=== PATIENT | male | born 1960 | race Caucasian/White ===

== ENCOUNTER 2022-08-03 02:26 | Inpatient (IN) ==
[2022-08-03] MEDS ORDERED: Ondansetron 4 mg VIAL 2 MG/ML 2 ml VIAL IV PRN (02:42)
[2022-08-03] MEDS ORDERED: Insulin GLARGINE 100 un/ml 10 ml VIAL SUBCUT ONE (03:03)
[2022-08-03 03:25] LABS: ABS Basophils 0.1 10^3/ul (0-0.2); ABS Eosinophils 0.1 10^3/ul (0-0.6); ABS Monocytes 1.4 10^3/ul (0-0.8); ABS Neutrophils 13.2 10^3/ul (1.5-7.7); Eosinophil % 0.9 %; Hematocrit 35 % (42-52); Hemoglobin 11.6 g/dL (14.0-18.0); Lymphocyte % 12.1 %; Mean Corpuscular HGB Conc 33 g/dL (31-36); Mean Corpuscular Hemoglobin 30 pg (27-31); Mean Corpuscular Volume 91 fL (80-94); Platelet Count 233 10^3/uL (150-450); Red Blood Count 3.87 10^6 /uL (4.18-5.48); Red Cell Distribution Width 14 % (10-15); White Blood Count 16.9 10^3/uL (3.5-10.8)
[2022-08-03] MEDS ORDERED: Vancomycin 1,750 MG in NS 0.9% 500 ml BAG 500 ML IVPB ONE (04:00)
[2022-08-03] MEDS ORDERED: Vancomycin per Pharmacy 1 EA NOTE FOLLOW UP SCH (04:00)
[2022-08-03] MEDS ORDERED: Zosyn per Pharmacy NOTE FOLLOW UP SCH (04:00)
[2022-08-03] MEDS ORDERED: Zosyn 3.375 GM IV - ED ONCE IV ONE (04:00)
[2022-08-03 04:22] LABS: Potassium 4.4 mmol/L (3.5-5.0); eGFR CKD-EPI 53.3 (>60)
[2022-08-03] MEDS ORDERED: ZOSYN 3.375 GM Q8H per EXTENDED INFUSION IV SCH (04:30)
[2022-08-03] MEDS ORDERED: Vancomycin Random Level NOTE FOLLOW UP ONE (06:00)
[2022-08-03] MEDS ORDERED: Vancomycin 750 MG in NS 0.9% 250 ML IVPB SCH (08:00)
[2022-08-03 08:15] LABS: C Reactive Protein 117.78 mg/L (<8.01)
[2022-08-03] MEDS: DULoxetine DR 60 mg CAP PO SCH (08:36)
[2022-08-03] MEDS: NF: Potassium Citrate 10 meq TAB (NF) PO SCH ×2 (08:46→22:49)
[2022-08-03] MEDS ORDERED: TAPENTADOL 200 MG PO SCH (09:00)
[2022-08-03] MEDS ORDERED: Gadoteridol (CONTRAST) 279.3 MG/ML 10 ML IV ONE (13:54)
[2022-08-03] MEDS: Cefepime 1 GM in Dextrose 1 GM/50 ML BAG IV SCH (17:23)
[2022-08-03] MEDS: Vancomycin 750 MG in NS 0.9% 250 ML IVPB SCH (20:05)
[2022-08-03] MEDS: Insulin GLARGINE 100 un/ml 10 ml VIAL SUBCUT SCH (22:59)
[2022-08-04] MEDS ORDERED: Vancomycin Trough Check NOTE FOLLOW UP ONE (07:30)
[2022-08-04 07:36] LABS: ABS Eosinophils 0.3 10^3/ul (0-0.6); ABS Lymphocytes 1.6 10^3/ul (1.0-4.8); ABS Neutrophils 13.5 10^3/ul (1.5-7.7); Eosinophil % 1.6 %; Hematocrit 42 % (42-52); Hemoglobin 13.7 g/dL (14.0-18.0); Lymphocyte % 9.9 %; Mean Corpuscular HGB Conc 33 g/dL (31-36); Mean Corpuscular Hemoglobin 30 pg (27-31); Mean Corpuscular Volume 90 fL (80-94); Mean Platelet Volume 7.4 fL (7.4-10.4); Platelet Count 325 10^3/uL (150-450); Red Blood Count 4.64 10^6 /uL (4.18-5.48); Red Cell Distribution Width 14 % (10-15); White Blood Count 16.5 10^3/uL (3.5-10.8)
[2022-08-04 08:07] LABS: Calcium 9.6 mg/dL (8.6-10.3); Magnesium 1.9 mg/dL (1.9-2.7)
[2022-08-04] MEDS: Cefepime 1 GM in Dextrose 1 GM/50 ML BAG IV SCH ×2 (08:29→17:34)
[2022-08-04 08:40] LABS: C Reactive Protein 108.99 mg/L (<8.01)
[2022-08-04] MEDS: Vancomycin 1000 MG in NS 0.9% 250 ML IVPB SCH ×2 (08:59→20:47)
[2022-08-04] MEDS: Vancomycin 750 MG in NS 0.9% 250 ML IVPB SCH (09:00)
[2022-08-04] MEDS: DULoxetine DR 60 mg CAP PO SCH (09:03)
[2022-08-04] MEDS: NF: Potassium Citrate 10 meq TAB (NF) PO SCH (09:09)
[2022-08-04] MEDS ORDERED: Sulfur Hexaflouride MICROSPHR 25 MG VIAL ONE (10:29)
[2022-08-04] MEDS ORDERED: NS 0.9% 1000 ml BAG 1,000 ML IV SCH (12:45)
[2022-08-04] MEDS: Enoxaparin 40 MG/0.4 ML SYR SUBCUT SCH (14:11)
[2022-08-04] MEDS: Tapentadol 50 mg TAB (NF) PO SCH ×2 (15:17→20:40)
[2022-08-04] MEDS: Insulin GLARGINE 100 un/ml 10 ml VIAL SUBCUT SCH (20:45)
[2022-08-04] MEDS: POTASSIUM CITRATE 10 MEQ PO SCH (21:59)
[2022-08-05] MEDS: Tapentadol 50 mg TAB (NF) PO SCH ×4 (02:39→21:47)
[2022-08-05 05:33] LABS: ABS Basophils 0.1 10^3/ul (0-0.2); ABS Eosinophils 0.6 10^3/ul (0-0.6); ABS Lymphocytes 1.9 10^3/ul (1.0-4.8); ABS Monocytes 1.1 10^3/ul (0-0.8); ABS Neutrophils 8.8 10^3/ul (1.5-7.7); Eosinophil % 4.9 %; Hematocrit 38 % (42-52); Hemoglobin 12.4 g/dL (14.0-18.0); Lymphocyte % 15.6 %; Mean Corpuscular HGB Conc 32 g/dL (31-36); Mean Corpuscular Hemoglobin 29 pg (27-31); Mean Corpuscular Volume 90 fL (80-94); Mean Platelet Volume 7.5 fL (7.4-10.4); Platelet Count 302 10^3/uL (150-450); Red Blood Count 4.23 10^6 /uL (4.18-5.48); Red Cell Distribution Width 15 % (10-15); White Blood Count 12.5 10^3/uL (3.5-10.8)
[2022-08-05] MEDS: Cefepime 1 GM in Dextrose 1 GM/50 ML BAG IV SCH (05:38)
[2022-08-05 06:11] LABS: Albumin 3.7 g/dL (3.2-5.2); Calcium 9.2 mg/dL (8.6-10.3); Magnesium 2.1 mg/dL (1.9-2.7); Total Bilirubin 0.4 mg/dL (0.2-1.0)
[2022-08-05 06:17] LABS: Albumin/Globulin Ratio 1.2 (1-3); Total Protein 6.7 g/dL (6.4-8.9)
[2022-08-05] MEDS ORDERED: fentaNYL 100 mcg/2 ml 50 MCG/ML VIAL ONE (08:01)
[2022-08-05] MEDS ORDERED: Flumazenil 0.5 mg/5 ml 0.1 MG/ML 5 ml VIAL ONE (08:01)
[2022-08-05] MEDS ORDERED: Midazolam 5 mg/5 ml VIAL 1 mg/ml 5 ml VIAL (5 mg) ONE (08:01)
[2022-08-05] MEDS ORDERED: Naloxone 0.4 mg VIAL 0.4 mg/ml 1 ml VIAL ONE (08:01)
[2022-08-05] MEDS: Vancomycin 1000 MG in NS 0.9% 250 ML IVPB SCH (10:43)
[2022-08-05] MEDS: DULoxetine DR 60 mg CAP PO SCH (11:04)
[2022-08-05] MEDS: POTASSIUM CITRATE 10 MEQ PO SCH ×2 (11:05→21:48)
[2022-08-05] MEDS: Enoxaparin 40 MG/0.4 ML SYR SUBCUT SCH (14:26)
[2022-08-05] MEDS: Ampicillin ADVAN 2 GM in NS 0.9% 100 ml BAG 100 ML IVPB SCH ×2 (14:54→21:48)
[2022-08-05] MEDS ORDERED: Lidocaine 1% MPF 5 ML VIAL INJ ONE (15:36)
[2022-08-05] MEDS: Insulin GLARGINE 100 un/ml 10 ml VIAL SUBCUT SCH (21:53)
[2022-08-06] MEDS: Tapentadol 50 mg TAB (NF) PO SCH ×3 (02:44→16:19)
[2022-08-06] MEDS: Ampicillin ADVAN 2 GM in NS 0.9% 100 ml BAG 100 ML IVPB SCH ×3 (02:44→16:19)
[2022-08-06 06:21] LABS: C Reactive Protein 44.18 mg/L (<8.01)
[2022-08-06] MEDS ORDERED: Lidocaine 1% MPF 2 ML VIAL INJ ONE (07:10)
[2022-08-06] MEDS: DULoxetine DR 60 mg CAP PO SCH (08:28)
[2022-08-06] MEDS: POTASSIUM CITRATE 10 MEQ PO SCH (08:30)
[2022-08-06] MEDS ORDERED: Vancomycin Trough Check NOTE FOLLOW UP ONE (08:30)
[2022-08-06 08:59] LABS: eGFR CKD-EPI 72.3 (>60)
[2022-08-06] MEDS: Enoxaparin 40 MG/0.4 ML SYR SUBCUT SCH (16:23)
[2022-08-06 16:55] VITALS: BP 157/101
== END 2022-08-06 17:00 | disposition home or self-care (01) | DRG 720 ==
LOC: ED 02:26 → EDHOLD 02:42 → SUATTDRO 02:42 → SSU 14:47
PROVIDERS: ADMIT Student in an Organized Health Care Education/Training Program; ATTEND Internal Medicine

== ENCOUNTER 2022-08-23 10:31 | Inpatient (IN) ==
[2022-08-23] MEDS ORDERED: Ondansetron ODT 4 mg TAB 4 MG TAB SL ONE (10:58)
[2022-08-23] MEDS ORDERED: NS 0.9% 1000 ml BAG 1,000 ML IV ONE ×2 (11:52→15:44)
[2022-08-23 13:09] LABS: ABS Lymphocytes 0.7 10^3/ul (1.0-4.8); ABS Monocytes 0.7 10^3/ul (0-0.8); ABS Neutrophils 12.3 10^3/ul (1.5-7.7); Hematocrit 39 % (42-52); Hemoglobin 12.9 g/dL (14.0-18.0); Lymphocyte % 4.9 %; Mean Corpuscular HGB Conc 33 g/dL (31-36); Mean Corpuscular Hemoglobin 30 pg (27-31); Mean Corpuscular Volume 90 fL (80-94); Mean Platelet Volume 7.9 fL (7.4-10.4); Platelet Count 254 10^3/uL (150-450); Red Blood Count 4.33 10^6 /uL (4.18-5.48); Red Cell Distribution Width 15 % (10-15); White Blood Count 13.7 10^3/uL (3.5-10.8)
[2022-08-23 13:29] LABS: INR 1.23 (0.88-1.18)
[2022-08-23] MEDS ORDERED: Vancomycin 1,500 MG in NS 0.9% 250 ml 250 ML IVPB ONE (13:30)
[2022-08-23] MEDS ORDERED: Piperacillin/Tazobac ADVAN 3.375 GM in NS 0.9% 100 ml BAG 100 ML IV ONE (13:30)
[2022-08-23 13:41] LABS: Albumin 4.4 g/dL (3.2-5.2); Albumin/Globulin Ratio 1.3 (1-3); C Reactive Protein 64.03 mg/L (<8.01); Calcium 9.5 mg/dL (8.6-10.3); Creatinine, Serum 1.21 mg/dL (0.67-1.17); Globulin 3.5 g/dL (2-4); Magnesium 2.1 mg/dL (1.9-2.7); Phosphorus 3.2 mg/dL (2.5-5.0); Potassium 4.6 mmol/L (3.5-5.0); Total Bilirubin 0.7 mg/dL (0.2-1.0); Total Protein 7.9 g/dL (6.4-8.9); eGFR CKD-EPI 67.3 (>60)
[2022-08-23 14:40] LABS: High Sensitivity Troponin 1 Hr 5 pg/mL (<20)
[2022-08-23] MEDS ORDERED: Dextrose 50% Syringe 50 ml 25 GM/50 ML SYRINGE IV PUSH PRN (15:15)
[2022-08-23] MEDS ORDERED: Zosyn per Pharmacy NOTE FOLLOW UP SCH (16:00)
[2022-08-23] MEDS: Enoxaparin 40 MG/0.4 ML SYR SUBCUT SCH (17:44)
[2022-08-23] MEDS: Acetaminophen IV 1 GM/100ML 1,000 MG/100 ML BAG IV PRN (17:44)
[2022-08-23 20:25] LABS: Urine Appearance Clear; Urine Bilirubin Negative (Negative); Urine Blood Negative (Negative); Urine Color Yellow; Urine Glucose 3+(>=500 mg/dL) (Negative); Urine Ketones 1+ (Negative); Urine Nitrite Negative (Negative); Urine Protein Negative (Negative); Urine Specific Gravity 1.025 (1.002-1.030); Urine Urobilinogen Negative (Negative)
[2022-08-23] MEDS ORDERED: Tapentadol 50 mg TAB (NF) PO PRN (21:00)
[2022-08-23] MEDS: ZOSYN 3.375 GM Q8H per EXTENDED INFUSION IV SCH (21:04)
[2022-08-23] MEDS: Senna TAB 8.6 mg TAB PO SCH (21:20)
[2022-08-23] MEDS: Potassium Citrate 10 meq TAB (NF) PO SCH (21:37)
[2022-08-24] MEDS: ZOSYN 3.375 GM Q8H per EXTENDED INFUSION IV SCH ×3 (03:26→20:20)
[2022-08-24] MEDS: DULoxetine DR 60 mg CAP PO SCH (07:56)
[2022-08-24] MEDS ORDERED: Canagliflozin 300 mg TAB (NF) PO SCH (09:00)
[2022-08-24] MEDS: Potassium Citrate 10 meq TAB (NF) PO SCH ×2 (09:18→21:51)
[2022-08-24 09:51] LABS: ABS Lymphocytes 0.3 10^3/ul (1.0-4.8); ABS Monocytes 0.4 10^3/ul (0-0.8); ABS Neutrophils 11.1 10^3/ul (1.5-7.7); Hematocrit 34 % (42-52); Hemoglobin 10.9 g/dL (14.0-18.0); Lymphocyte % 2.9 %; Mean Corpuscular HGB Conc 33 g/dL (31-36); Mean Corpuscular Hemoglobin 29 pg (27-31); Mean Corpuscular Volume 89 fL (80-94); Mean Platelet Volume 7.7 fL (7.4-10.4); Platelet Count 185 10^3/uL (150-450); Red Blood Count 3.76 10^6 /uL (4.18-5.48); Red Cell Distribution Width 15 % (10-15); White Blood Count 11.8 10^3/uL (3.5-10.8)
[2022-08-24 10:06] LABS: Creatinine, Serum 1.19 mg/dL (0.67-1.17); eGFR CKD-EPI 68.6 (>60)
[2022-08-24] MEDS ORDERED: Tapentadol 50 mg TAB (NF) PO PRN (11:15)
[2022-08-24] MEDS ORDERED: cefTRIAXone 2 gm/50 mL D5W 2 GM/50 ML BAG IV SCH (11:30)
[2022-08-24] MEDS: Acetaminophen IV 1 GM/100ML 1,000 MG/100 ML BAG IV PRN (14:53)
[2022-08-24] MEDS: Enoxaparin 40 MG/0.4 ML SYR SUBCUT SCH (16:52)
[2022-08-24] MEDS ORDERED: TAPENTADOL 100 MG PO PRN (18:12)
[2022-08-24] MEDS ORDERED: Tapentadol 50 mg TAB (NF) PO SCH (19:00)
[2022-08-24] MEDS: Tapentadol 50 mg TAB (NF) PO SCH (20:17)
[2022-08-24] MEDS: Senna TAB 8.6 mg TAB PO SCH (20:18)
[2022-08-25] MEDS: Tapentadol 50 mg TAB (NF) PO SCH ×3 (03:09→18:26)
[2022-08-25] MEDS: ZOSYN 3.375 GM Q8H per EXTENDED INFUSION IV SCH ×3 (03:09→19:46)
[2022-08-25 06:34] LABS: ABS Lymphocytes 0.9 10^3/ul (1.0-4.8); ABS Monocytes 0.7 10^3/ul (0-0.8); ABS Neutrophils 5.9 10^3/ul (1.5-7.7); Eosinophil % 0.3 %; Hematocrit 33 % (42-52); Hemoglobin 10.8 g/dL (14.0-18.0); Lymphocyte % 12.5 %; Mean Corpuscular HGB Conc 33 g/dL (31-36); Mean Corpuscular Hemoglobin 29 pg (27-31); Mean Corpuscular Volume 89 fL (80-94); Mean Platelet Volume 7.6 fL (7.4-10.4); Platelet Count 180 10^3/uL (150-450); Red Blood Count 3.72 10^6 /uL (4.18-5.48); Red Cell Distribution Width 15 % (10-15); White Blood Count 7.6 10^3/uL (3.5-10.8)
[2022-08-25 06:53] LABS: Creatinine, Serum 1.09 mg/dL (0.67-1.17); Potassium 3.7 mmol/L (3.5-5.0); eGFR CKD-EPI 76.3 (>60)
[2022-08-25] MEDS: DULoxetine DR 60 mg CAP PO SCH (08:51)
[2022-08-25] MEDS: Potassium Citrate 10 meq TAB (NF) PO SCH ×2 (08:52→20:42)
[2022-08-25] MEDS: CANAGLIFLOZIN 300 MG PO SCH (08:53)
[2022-08-25] MEDS ORDERED: fentaNYL 100 mcg/2 ml 50 MCG/ML VIAL ONE (13:49)
[2022-08-25] MEDS ORDERED: Midazolam 2 mg/2 ml VIAL 1 mg/ml 2 ml VIAL (2 mg) ONE (13:49)
[2022-08-25] MEDS ORDERED: Propofol 10 MG/ML 20 ML BTL ONE ×3 (13:53→14:35)
[2022-08-25] MEDS ORDERED: Naloxone 0.4 mg VIAL 0.4 mg/ml 1 ml VIAL IV PRN (14:02)
[2022-08-25] MEDS ORDERED: Ondansetron 4 mg VIAL 2 MG/ML 2 ml VIAL IV PRN (14:02)
[2022-08-25] MEDS ORDERED: fentaNYL 100 mcg/2 ml 50 MCG/ML VIAL IV PRN (14:02)
[2022-08-25] MEDS ORDERED: Bupivacaine 0.5% SDV PF 30ML VIAL ONE (14:10)
[2022-08-25] MEDS ORDERED: Lidocaine 1% VIAL 10 MG/ML VIAL 30 ML ONE (14:10)
[2022-08-25] MEDS ORDERED: Phenylephrine 40 mcg/mL 10mL (400mcg) SYRINGE ONE (14:40)
[2022-08-25] MEDS: Senna TAB 8.6 mg TAB PO SCH (19:55)
[2022-08-26] MEDS: Tapentadol 50 mg TAB (NF) PO SCH ×3 (01:56→18:24)
[2022-08-26] MEDS: ZOSYN 3.375 GM Q8H per EXTENDED INFUSION IV SCH ×3 (03:30→19:34)
[2022-08-26 05:39] LABS: ABS Eosinophils 0.1 10^3/ul (0-0.6); ABS Monocytes 0.7 10^3/ul (0-0.8); ABS Neutrophils 5.7 10^3/ul (1.5-7.7); Eosinophil % 0.9 %; Hematocrit 34 % (42-52); Hemoglobin 10.9 g/dL (14.0-18.0); Lymphocyte % 13.3 %; Mean Corpuscular HGB Conc 32 g/dL (31-36); Mean Corpuscular Hemoglobin 29 pg (27-31); Mean Corpuscular Volume 89 fL (80-94); Mean Platelet Volume 7.7 fL (7.4-10.4); Platelet Count 192 10^3/uL (150-450); Red Blood Count 3.77 10^6 /uL (4.18-5.48); Red Cell Distribution Width 15 % (10-15); White Blood Count 7.6 10^3/uL (3.5-10.8)
[2022-08-26 06:05] LABS: Calcium 8.4 mg/dL (8.6-10.3); Creatinine, Serum 0.91 mg/dL (0.67-1.17); Magnesium 1.9 mg/dL (1.9-2.7); eGFR CKD-EPI 94.7 (>60)
[2022-08-26] MEDS ORDERED: Magnesium Sulfate IV 1GM/100ML 1 GM/100 ML BAG IV ONE (07:17)
[2022-08-26] MEDS: CANAGLIFLOZIN 300 MG PO SCH (07:40)
[2022-08-26] MEDS: DULoxetine DR 60 mg CAP PO SCH (07:42)
[2022-08-26] MEDS: Tapentadol 50 mg TAB (NF) PO PRN (07:43)
[2022-08-26] MEDS: Potassium Citrate 10 meq TAB (NF) PO SCH (07:44)
[2022-08-26] MEDS ORDERED: Enoxaparin 40 MG/0.4 ML SYR SUBCUT SCH (12:00)
[2022-08-26] MEDS: POTASSIUM CITRATE 10 MEQ PO SCH (20:27)
[2022-08-26] MEDS: Senna TAB 8.6 mg TAB PO SCH (20:27)
[2022-08-27] MEDS ORDERED: D5W 1/2 NS 1000 ml BAG 1,000 ML IV SCH (00:01)
[2022-08-27] MEDS: Tapentadol 50 mg TAB (NF) PO SCH ×2 (03:19→12:56)
[2022-08-27] MEDS: ZOSYN 3.375 GM Q8H per EXTENDED INFUSION IV SCH ×2 (03:30→13:09)
[2022-08-27] MEDS ORDERED: Famotidine IV 10 MG/ML 2 ml VIAL (20 mg) IV ONE (08:25)
[2022-08-27] MEDS ORDERED: Famotidine IV 10 MG/ML 2 ml VIAL (20 mg) ONE (08:40)
[2022-08-27] MEDS ORDERED: Lactated Ringers 1000 ml BAG 1,000 ML IV SCH (09:00)
[2022-08-27] MEDS ORDERED: Midazolam 2 mg/2 ml VIAL 1 mg/ml 2 ml VIAL (2 mg) ONE (09:52)
[2022-08-27] MEDS ORDERED: Dexamethasone IV 4 MG/ML VIAL 1 ml VIAL ONE (10:07)
[2022-08-27] MEDS ORDERED: Ondansetron 4 mg VIAL 2 MG/ML 2 ml VIAL ONE (10:07)
[2022-08-27] MEDS ORDERED: Lidocaine 2% PF 5 ML VIAL ONE (10:07)
[2022-08-27] MEDS ORDERED: Propofol 10 MG/ML 20 ML BTL ONE (10:16)
[2022-08-27] MEDS ORDERED: Ondansetron 4 mg VIAL 2 MG/ML 2 ml VIAL IV PRN (10:40)
[2022-08-27] MEDS ORDERED: Naloxone 0.4 mg VIAL 0.4 mg/ml 1 ml VIAL IV PRN (10:40)
[2022-08-27] MEDS ORDERED: fentaNYL 100 mcg/2 ml 50 MCG/ML VIAL IV PRN (10:40)
[2022-08-27] MEDS: DULoxetine DR 60 mg CAP PO SCH (12:56)
[2022-08-27] MEDS: POTASSIUM CITRATE 10 MEQ PO SCH (12:57)
[2022-08-27] MEDS: CANAGLIFLOZIN 300 MG PO SCH (13:09)
[2022-08-27] MEDS ORDERED: Enoxaparin 40 MG/0.4 ML SYR SUBCUT SCH (14:00)
[2022-08-27] MEDS ORDERED: Lidocaine 1% MPF 5 ML VIAL INJ ONE (14:07)
[2022-08-27] MEDS ORDERED: ceFAZolin 2 GM PREMIX 2 GM/50 ML BAG IV SCH (15:00)
[2022-08-27] MEDS ORDERED: ceFAZolin VIAL 2 GM in NS 0.9% 100 ml BAG 100 ML IVPB SCH (15:00)
[2022-08-27] MEDS: Tapentadol 50 mg TAB (NF) PO PRN (15:58)
[2022-08-27] MEDS ORDERED: cefTRIAXone 2 gm/50 mL D5W 2 GM/50 ML BAG IV ONE (16:36)
[2022-08-28 03:50] VITALS: BP 126/75
[2022-08-30] MEDS ORDERED: DULAGLUTIDE 1.5 MG/0.5 ML SUBCUT SCH (09:00)
== END 2022-08-27 19:40 | disposition home or self-care (01) | DRG 710 ==
LOC: EDHOLD 10:31 → ED 10:31 → MED 16:42 → SUATTDRO 08-24 11:18
PROVIDERS: ADMIT Internal Medicine; ATTEND Internal Medicine

== ENCOUNTER 2022-09-03 20:04 | Inpatient (IN) ==
[2022-09-03] MEDS ORDERED: Lactated Ringers 1000 ml BAG 1,000 ML IV ONE (20:24)
[2022-09-03] MEDS ORDERED: cefTRIAXone 2 gm/50 mL D5W 2 GM/50 ML BAG IV ONE (20:26)
[2022-09-03 20:27] LABS: Venous Bicarbonate HCO3 27.4 mmol/L (24-28)
[2022-09-03 20:29] LABS: ABS Basophils 0.1 10^3/ul (0-0.2); ABS Eosinophils 0.2 10^3/ul (0-0.6); ABS Lymphocytes 2.9 10^3/ul (1.0-4.8); ABS Monocytes 1.2 10^3/ul (0-0.8); ABS Neutrophils 6.7 10^3/ul (1.5-7.7); Eosinophil % 2.1 %; Hematocrit 38 % (42-52); Hemoglobin 12.1 g/dL (14.0-18.0); Lymphocyte % 25.9 %; Mean Corpuscular HGB Conc 32 g/dL (31-36); Mean Corpuscular Hemoglobin 29 pg (27-31); Mean Corpuscular Volume 91 fL (80-94); Mean Platelet Volume 7.2 fL (7.4-10.4); Platelet Count 361 10^3/uL (150-450); Red Blood Count 4.19 10^6 /uL (4.18-5.48); Red Cell Distribution Width 15 % (10-15); White Blood Count 11.1 10^3/uL (3.5-10.8)
[2022-09-03] MEDS ORDERED: Dexamethasone IV 4 MG/ML VIAL 1 ml VIAL IV SLOW PU ONE (20:38)
[2022-09-03 20:43] LABS: Activated Partial Thrombo Time 33.4 seconds (26.0-38.0); INR 1.08 (0.88-1.18)
[2022-09-03 20:58] LABS: Albumin 3.7 g/dL (3.2-5.2); C Reactive Protein 21.5 mg/L (<8.01); Calcium 9.1 mg/dL (8.6-10.3); Creatinine, Serum 1.69 mg/dL (0.67-1.17); Globulin 3.6 g/dL (2-4); Potassium 4.5 mmol/L (3.5-5.0); Total Bilirubin 0.2 mg/dL (0.2-1.0); Total Protein 7.3 g/dL (6.4-8.9); eGFR CKD-EPI 45.1 (>60)
[2022-09-03] MEDS ORDERED: Vancomycin 1,500 MG in NS 0.9% 250 ml 250 ML IVPB ONE (21:00)
[2022-09-03] MEDS ORDERED: Lactated Ringers SEPSIS* BAG 2,190 ML IV ONE (21:17)
[2022-09-03] MEDS ORDERED: Dextrose 50% Syringe 50 ml 25 GM/50 ML SYRINGE IV PUSH ONE (21:18)
[2022-09-03 22:20] LABS: High Sensitivity Troponin 1 Hr 3 pg/mL (<20)
[2022-09-04] MEDS: Norepinephrine 16MCG/ML BAGD5W 4,000 MCG/250 ML BAG IV ONE ×2 (01:18→03:49)
[2022-09-04] MEDS ORDERED: Piperacillin/Tazobac ADVAN 3.375 GM in NS 0.9% 100 ml BAG 100 ML IV ONE (01:54)
[2022-09-04] MEDS ORDERED: Remdesivir 100 mg Vial 200 MG in NS 0.9% 250 ml 210 ML IV ONE (01:55)
[2022-09-04] MEDS ORDERED: Norepinephrine 16MCG/ML BAGD5W 4,000 MCG/250 ML BAG IV SCH ×2 (02:00→04:32)
[2022-09-04] MEDS ORDERED: Zosyn per Pharmacy NOTE FOLLOW UP SCH (02:00)
[2022-09-04 02:22] LABS: PCO2 Arterial 49 mmHg (35-45); PO2 Arterial 136 mmHg (80-100)
[2022-09-04 05:14] LABS: Hematocrit 35 % (42-52); Hemoglobin 11.1 g/dL (14.0-18.0); Mean Corpuscular HGB Conc 32 g/dL (31-36); Mean Corpuscular Hemoglobin 29 pg (27-31); Mean Corpuscular Volume 91 fL (80-94); Mean Platelet Volume 7.8 fL (7.4-10.4); Platelet Count 295 10^3/uL (150-450); Red Blood Count 3.84 10^6 /uL (4.18-5.48); Red Cell Distribution Width 16 % (10-15); White Blood Count 19.3 10^3/uL (3.5-10.8)
[2022-09-04 05:17] LABS: Urine Appearance Clear; Urine Bilirubin Negative (Negative); Urine Blood Negative (Negative); Urine Color Yellow; Urine Glucose 3+(>=500 mg/dL) (Negative); Urine Ketones Negative (Negative); Urine Nitrite Negative (Negative); Urine Protein Negative (Negative); Urine Urobilinogen Negative (Negative)
[2022-09-04 05:20] LABS: INR 1.12 (0.88-1.18)
[2022-09-04 05:55] LABS: Creatinine, Serum 1.58 mg/dL (0.67-1.17); Magnesium 1.8 mg/dL (1.9-2.7); Phosphorus 3.2 mg/dL (2.5-5.0); eGFR CKD-EPI 48.8 (>60)
[2022-09-04] MEDS ORDERED: DOXYcycline 100 MG in NS 0.9% 250 ml 250 ML IVPB SCH (06:00)
[2022-09-04 06:06] LABS: Potassium 6.4 mmol/L (3.5-5.0)
[2022-09-04] MEDS ORDERED: Dextrose 50% Syringe 50 ml 25 GM/50 ML SYRINGE IV PUSH PRN ×2 (06:12→08:36)
[2022-09-04] MEDS ORDERED: ZOSYN 3.375 GM Q8H per EXTENDED INFUSION IV SCH (08:00)
[2022-09-04] MEDS: SODIUM ZIRCONIUM CYCLOSILICATE 10 GM PACKET PO SCH ×3 (08:12→23:59)
[2022-09-04] MEDS: DULoxetine DR 60 mg CAP PO SCH (08:12)
[2022-09-04] MEDS: Enoxaparin 40 MG/0.4 ML SYR SUBCUT SCH (08:13)
[2022-09-04 08:26] LABS: ABS Monocytes 0.7 10^3/ul (0-0.8); ABS Neutrophils 17.4 10^3/ul (1.5-7.7); Lymphocyte % 5.3 %
[2022-09-04] MEDS ORDERED: Potassium Citrate 10 meq TAB (NF) PO SCH (09:00)
[2022-09-04] MEDS ORDERED: Enoxaparin 40 MG/0.4 ML SYR SUBCUT SCH (09:00)
[2022-09-04 10:04] LABS: Calcium 8.4 mg/dL (8.6-10.3); Creatinine, Serum 1.44 mg/dL (0.67-1.17); Magnesium 1.9 mg/dL (1.9-2.7); eGFR CKD-EPI 54.6 (>60)
[2022-09-04 10:14] LABS: Potassium 5.5 mmol/L (3.5-5.0)
[2022-09-04 13:51] LABS: Calcium 8.9 mg/dL (8.6-10.3); Creatinine, Serum 1.32 mg/dL (0.67-1.17); Magnesium 1.9 mg/dL (1.9-2.7); eGFR CKD-EPI 60.6 (>60)
[2022-09-04] MEDS ORDERED: ceFAZolin 2 GM in NS PREMIX 2 GM/100 ML BAG IVPB SCH (14:00)
[2022-09-04] MEDS: ceFAZolin 2 GM PREMIX 2 GM/50 ML BAG IV SCH ×2 (14:56→22:44)
[2022-09-04] MEDS: Tapentadol 50 mg TAB (NF) PO SCH ×2 (17:34→22:43)
[2022-09-04] MEDS ORDERED: Dexamethasone IV 4 MG/ML VIAL 1 ml VIAL IV SLOW PU SCH (21:00)
[2022-09-05] MEDS: ceFAZolin 2 GM PREMIX 2 GM/50 ML BAG IV SCH (05:38)
[2022-09-05] MEDS: Tapentadol 50 mg TAB (NF) PO SCH ×2 (05:50→11:32)
[2022-09-05 06:02] LABS: ABS Lymphocytes 2.1 10^3/ul (1.0-4.8); ABS Monocytes 0.6 10^3/ul (0-0.8); ABS Neutrophils 7.8 10^3/ul (1.5-7.7); Eosinophil % 0.2 %; Hematocrit 33 % (42-52); Lymphocyte % 19.8 %; Mean Corpuscular HGB Conc 33 g/dL (31-36); Mean Corpuscular Hemoglobin 29 pg (27-31); Mean Corpuscular Volume 89 fL (80-94); Mean Platelet Volume 7.5 fL (7.4-10.4); Platelet Count 295 10^3/uL (150-450); Red Blood Count 3.76 10^6 /uL (4.18-5.48); Red Cell Distribution Width 15 % (10-15); White Blood Count 10.6 10^3/uL (3.5-10.8)
[2022-09-05 06:07] LABS: INR 1.2 (0.88-1.18)
[2022-09-05 06:31] LABS: Calcium 8.7 mg/dL (8.6-10.3); Creatinine, Serum 1.02 mg/dL (0.67-1.17); Magnesium 1.9 mg/dL (1.9-2.7); Potassium 4.5 mmol/L (3.5-5.0); eGFR CKD-EPI 82.6 (>60)
[2022-09-05] MEDS: Enoxaparin 40 MG/0.4 ML SYR SUBCUT SCH (07:57)
[2022-09-05] MEDS: DULoxetine DR 60 mg CAP PO SCH (07:57)
[2022-09-05] MEDS ORDERED: Dexamethasone IV 4 MG/ML VIAL 1 ml VIAL IV SLOW PU SCH (09:00)
[2022-09-05] MEDS ORDERED: Remdesivir 100 mg Vial 100 MG in NS 0.9% 250 ml 230 ML IV SCH (09:00)
[2022-09-05 12:23] VITALS: BP 155/90
== END 2022-09-05 13:20 | disposition home or self-care (01) | DRG 720 ==
LOC: ED 20:04 → SUATTDRO 09-04 00:01 → EDHOLD 09-04 00:01 → ICU 09-04 00:33 → MED 09-04 17:08
PROVIDERS: ADMIT Internal Medicine; ATTEND Internal Medicine

== ENCOUNTER 2022-12-23 15:01 | Inpatient (IN) ==
[2022-12-23] MEDS ORDERED: Lorazepam PYXIS KEY PRN ×4 (15:40→20:43)
[2022-12-23] MEDS ORDERED: LORazepam 2 mg VIAL 1 ml IV PUSH ONE ×4 (15:40→20:43)
[2022-12-23 15:58] LABS: ABS Lymphocytes 1.2 10^3/uL (1.0-4.8); ABS Monocytes 0.5 10^3/uL (0.0-1.1); Eosinophil % 0.3 %; Hematocrit 33.8 % (38-53); Hemoglobin 10.9 g/dL (13.2-16.3); Lymphocyte % 12.4 %; Mean Corpuscular Hemoglobin 26.8 pg (27-33); Mean Corpuscular Hgb Conc 32.4 g/dL (31-36); Mean Corpuscular Volume 82.7 fL (80-97); Mean Platelet Volume 7.3 fL (7.5-11.2); Platelet Count 442 10^3/uL (150-450); Red Blood Count 4.08 10^6/uL (4.06-5.63); Red Cell Distribution Width 16.9 % (12-17); White Blood Count 9.7 10^3/uL (3.6-10.2)
[2022-12-23 16:20] LABS: High Sens Troponin Baseline 4 pg/mL (<20)
[2022-12-23 16:43] LABS: ALT 16 U/L (7-52); AST 17 U/L (13-39); Alcohol, S < 13 mg/dL (<13); Alkaline Phosphatase 109 U/L (35-149); Anion Gap 16 mmol/L (2-16); Blood Urea Nitrogen 26 mg/dL (6-24); CO2 Carbon Dioxide 22 mmol/L (22-32); Chloride 102 mmol/L (101-111); Creatinine, Serum 1.21 mg/dL (0.67-1.17); Globulin 3.9 g/dL (2-4); Glucose 145 mg/dL (70-100); Potassium 4.5 mmol/L (3.5-5.0); Sodium 140 mmol/L (135-145); Total Protein 7.9 g/dL (6.4-8.9); eGFR CKD-EPI 66.9 (>60)
[2022-12-23] MEDS ORDERED: Vancomycin 1,500 MG in NS 0.9% 250 ml 250 ML IVPB ONE (17:00)
[2022-12-23] MEDS ORDERED: Cefepime 1 GM in Dextrose 1 GM/50 ML BAG IV ONE (17:01)
[2022-12-23 17:39] LABS: High Sensitivity Troponin 1 Hr 4 pg/mL (<20)
[2022-12-23 20:10] LABS: Venous Bicarbonate HCO3 22.6 mmol/L (24-28)
[2022-12-24] MEDS ORDERED: Haloperidol 5 mg/ml SDV IV/IM 5 MG/ML AMP IV SLOW PU PRN (00:58)
[2022-12-24] MEDS ORDERED: Piperacillin/Tazobac ADVAN 3.375 GM in NS 0.9% 100 ml BAG 100 ML IV ONE (01:14)
[2022-12-24] MEDS ORDERED: cefTRIAXone 1 gm/50 mL D5W 1 GM/50 ML BAG IV SCH (01:15)
[2022-12-24] MEDS ORDERED: Iodixanol (CONTRAST) 320 MG/ML 100 ML SDV IV ONE (01:54)
[2022-12-24] MEDS ORDERED: Lactulose 300 ML for PR 200 GM/300 ML BTL PR SCH (02:00)
[2022-12-24] MEDS ORDERED: Zosyn per Pharmacy NOTE FOLLOW UP SCH (02:00)
[2022-12-24 02:02] LABS: Urine Appearance Cloudy; Urine Bilirubin Negative (Negative); Urine Blood Negative (Negative); Urine Color Yellow; Urine Glucose 3+(>=500 mg/dL) (Negative); Urine Ketones 1+ (Negative); Urine Nitrite Negative (Negative); Urine Protein 1+(30 mg/dL) (Negative); Urine Specific Gravity 1.028 (1.002-1.030); Urine Urobilinogen Negative (Negative)
[2022-12-24 02:05] LABS: Urine Amorphous Crystals Present (Absent); Urine Bacteria 1+ (Absent); Urine Red Blood Cell Absent (Absent); Urine White Blood Cell Absent (Absent); Urine Yeast Present (Absent)
[2022-12-24 02:25] LABS: Urine Benzodiazepine Screen Presumptive Positive (None Detect); Urine Cannabinoids Screen None Detected (None Detect); Urine Opiates Screen None Detected (None Detect)
[2022-12-24] MEDS ORDERED: Clindamycin 900 MG/D5W BAG 900 MG/50 ML BAG IVPB SCH (03:00)
[2022-12-24] MEDS ORDERED: Vancomycin per Pharmacy 1 EA NOTE FOLLOW UP SCH (03:00)
[2022-12-24] MEDS: Enoxaparin 40 MG/0.4 ML SYR SUBCUT SCH ×2 (03:32→21:16)
[2022-12-24] MEDS ORDERED: Lorazepam PYXIS KEY PRN ×4 (03:49→12:36)
[2022-12-24] MEDS ORDERED: LORazepam 2 mg VIAL 1 ml IV PUSH ONE ×3 (03:49→12:36)
[2022-12-24] MEDS ORDERED: Clindamycin 900 MG/D5W BAG IVPB ONE (06:00)
[2022-12-24] MEDS ORDERED: Haloperidol 5 mg/ml SDV IV/IM 5 MG/ML AMP IV SLOW PU ONE (06:07)
[2022-12-24] MEDS: Lactulose 30 ml UDC NG TUBE SCH ×3 (06:28→14:25)
[2022-12-24 06:32] LABS: ABS Basophils 0.1 10^3/uL (0.0-0.1); ABS Lymphocytes 1.3 10^3/uL (1.0-4.8); ABS Monocytes 0.7 10^3/uL (0.0-1.1); Eosinophil % 0.1 %; Hemoglobin 10.6 g/dL (13.2-16.3); Lymphocyte % 10.1 %; Mean Corpuscular Hemoglobin 26.5 pg (27-33); Mean Corpuscular Hgb Conc 32.1 g/dL (31-36); Mean Corpuscular Volume 82.6 fL (80-97); Mean Platelet Volume 7.3 fL (7.5-11.2); Platelet Count 476 10^3/uL (150-450); Red Cell Distribution Width 17.1 % (12-17); White Blood Count 13.2 10^3/uL (3.6-10.2)
[2022-12-24 06:35] LABS: Urine Appearance Cloudy; Urine Bilirubin Negative (Negative); Urine Blood 3+ (Negative); Urine Color Yellow; Urine Glucose 3+(>=500 mg/dL) (Negative); Urine Ketones 1+ (Negative); Urine Nitrite Negative (Negative); Urine Protein 2+(100 mg/dL) (Negative); Urine Urobilinogen Negative (Negative)
[2022-12-24 06:41] LABS: INR 1.36 (0.88-1.18)
[2022-12-24 06:47] LABS: TSH Ultra Thyroid Stim Horm 0.41 mcIU/mL (0.34-5.60)
[2022-12-24 06:50] LABS: Free T4 0.83 ng/dL (0.61-1.12)
[2022-12-24 06:50] LABS: Urine Bacteria Absent (Absent); Urine Red Blood Cell 3+(>10/hpf) (Absent); Urine White Blood Cell 1+(6-10/hpf) (Absent)
[2022-12-24 06:59] LABS: Albumin 3.8 g/dL (3.2-5.2); Calcium 9.8 mg/dL (8.6-10.3); Creatinine, Serum 1.34 mg/dL (0.67-1.17); Globulin 3.8 g/dL (2-4); Magnesium 1.8 mg/dL (1.9-2.7); Potassium 4.3 mmol/L (3.5-5.0); Total Bilirubin 0.5 mg/dL (0.2-1.0); Total Protein 7.6 g/dL (6.4-8.9); eGFR CKD-EPI 59.2 (>60)
[2022-12-24] MEDS ORDERED: LORazepam 2 mg VIAL 1 ml IV PUSH PRN (07:00)
[2022-12-24] MEDS: Vancomycin 1000 MG in NS 0.9% 250 ML IVPB SCH ×2 (07:40→18:10)
[2022-12-24] MEDS ORDERED: Lactated Ringers 1000 ml BAG 1,000 ML IV ONE (07:43)
[2022-12-24 08:20] LABS: PCO2 Arterial 27 mmHg (35-45); PO2 Arterial 99 mmHg (80-100)
[2022-12-24] MEDS: DULoxetine DR 60 mg CAP PO SCH (08:59)
[2022-12-24] MEDS ORDERED: Canagliflozin 300 mg TAB (NF) PO SCH (09:00)
[2022-12-24] MEDS ORDERED: Insulin GLARGINE 100 un/ml 10 ml VIAL SUBCUT SCH (09:00)
[2022-12-24] MEDS ORDERED: Morphine 4 MG/ML VIAL (1 ml) IV ONE (09:14)
[2022-12-24] MEDS: Insulin GLARGINE 100 un/ml 10 ml VIAL SUBCUT SCH (09:15)
[2022-12-24] MEDS: ZOSYN 3.375 GM Q8H per EXTENDED INFUSION IV SCH ×3 (10:04→17:07)
[2022-12-24] MEDS ORDERED: Dexmedetomidine 1,000 MCG in NS 0.9% 250 ml 240 ML IV SCH (12:00)
[2022-12-24] MEDS ORDERED: LORazepam 2 mg VIAL 1 ml ONE (12:35)
[2022-12-24] MEDS ORDERED: Rocuronium 50 mg VIAL 10 mg/ml 5 ml VIAL (50 mg) ONE ×2 (12:47→12:53)
[2022-12-24] MEDS ORDERED: Propofol 10 mg/ml 100 ML BTL 1,000 MG/100 ML BTL ONE (12:51)
[2022-12-24] MEDS ORDERED: Etomidate 40 mg/20 ml (2 MG/ML) 20 ml VIAL (40 mg) ONE (12:53)
[2022-12-24] MEDS: Lactated Ringers 1000 ml BAG 1,000 ML IV SCH (14:48)
[2022-12-24] MEDS: Propofol 10 mg/ml 100 ML BTL 1,000 MG/100 ML BTL IV SCH ×3 (14:48→21:15)
[2022-12-24] MEDS ORDERED: fentaNYL 100 mcg/2 ml 50 MCG/ML VIAL IV SLOW PU ONE (14:51)
[2022-12-24] MEDS: fentaNYL INFUSION 50 mcg/mL VL 2,500 MCG/50 ML VIAL IV SCH (15:12)
[2022-12-24] MEDS: Clindamycin 600 MG/D5W BAG IV SCH ×2 (16:06→21:51)
[2022-12-24] MEDS: Pantoprazole VIAL 40 MG VIAL IV SCH (17:13)
[2022-12-24] MEDS: Chlorhexidine MOUTHWASH 0.12% 15 ML UDC SWISH SPIT SCH (21:16)
[2022-12-25] MEDS: Lactated Ringers 1000 ml BAG 1,000 ML IV SCH ×3 (00:24→15:47)
[2022-12-25] MEDS: ZOSYN 3.375 GM Q8H per EXTENDED INFUSION IV SCH ×3 (01:45→18:41)
[2022-12-25 04:31] LABS: ABS Eosinophils 0.1 10^3/uL (0.0-0.5); ABS Lymphocytes 1.3 10^3/uL (1.0-4.8); ABS Monocytes 0.5 10^3/uL (0.0-1.1); ABS Neutrophils 5.3 10^3/uL (1.5-7.6); Eosinophil % 1.5 %; Hematocrit 26.5 % (38-53); Hemoglobin 8.8 g/dL (13.2-16.3); Lymphocyte % 18.1 %; Mean Corpuscular Volume 81.9 fL (80-97); Platelet Count 334 10^3/uL (150-450); Red Blood Count 3.24 10^6/uL (4.06-5.63); Red Cell Distribution Width 17.2 % (12-17); White Blood Count 7.2 10^3/uL (3.6-10.2)
[2022-12-25 05:07] LABS: Calcium 8.6 mg/dL (8.6-10.3); Creatinine, Serum 1.34 mg/dL (0.67-1.17); Globulin 2.9 g/dL (2-4); Potassium 3.6 mmol/L (3.5-5.0); Total Bilirubin 0.3 mg/dL (0.2-1.0); Total Protein 5.9 g/dL (6.4-8.9); eGFR CKD-EPI 59.2 (>60)
[2022-12-25] MEDS: Vancomycin 1000 MG in NS 0.9% 250 ML IVPB SCH (05:28)
[2022-12-25] MEDS ORDERED: Vancomycin Trough Check NOTE FOLLOW UP ONE (05:30)
[2022-12-25] MEDS: Clindamycin 600 MG/D5W BAG IV SCH (05:59)
[2022-12-25] MEDS: Propofol 10 mg/ml 100 ML BTL 1,000 MG/100 ML BTL IV SCH ×4 (06:20→23:17)
[2022-12-25] MEDS: Insulin GLARGINE 100 un/ml 10 ml VIAL SUBCUT SCH (08:47)
[2022-12-25] MEDS: Chlorhexidine MOUTHWASH 0.12% 15 ML UDC SWISH SPIT SCH ×3 (08:48→22:32)
[2022-12-25] MEDS: DULoxetine DR 60 mg CAP PO SCH (08:48)
[2022-12-25 16:29] LABS: Hematocrit 26.8 % (38-53); Hemoglobin 8.8 g/dL (13.2-16.3)
[2022-12-25] MEDS: Pantoprazole VIAL 40 MG VIAL IV SCH (17:00)
[2022-12-25 17:23] LABS: Calcium 8.6 mg/dL (8.6-10.3); Creatinine, Serum 1.13 mg/dL (0.67-1.17); Potassium 3.6 mmol/L (3.5-5.0); eGFR CKD-EPI 72.6 (>60)
[2022-12-25] MEDS ORDERED: fentaNYL 100 mcg/2 ml 50 MCG/ML VIAL ONE (18:23)
[2022-12-25] MEDS: Enoxaparin 40 MG/0.4 ML SYR SUBCUT SCH (22:32)
[2022-12-26] MEDS: Lactated Ringers 1000 ml BAG 1,000 ML IV SCH ×2 (01:11→10:49)
[2022-12-26] MEDS: ZOSYN 3.375 GM Q8H per EXTENDED INFUSION IV SCH ×2 (01:30→09:47)
[2022-12-26 04:15] LABS: ABS Basophils 0.1 10^3/uL (0.0-0.1); ABS Eosinophils 0.3 10^3/uL (0.0-0.5); ABS Lymphocytes 1.3 10^3/uL (1.0-4.8); ABS Monocytes 0.4 10^3/uL (0.0-1.1); ABS Neutrophils 4.4 10^3/uL (1.5-7.6); ABS Nucleated RBC 0.01 10^3/ul; Eosinophil % 4.4 %; Hemoglobin 8.5 g/dL (13.2-16.3); Lymphocyte % 20.4 %; Mean Corpuscular Hemoglobin 27.5 pg (27-33); Mean Corpuscular Hgb Conc 33.9 g/dL (31-36); Mean Corpuscular Volume 81.2 fL (80-97); Mean Platelet Volume 6.9 fL (7.5-11.2); Nucleated Red Blood Cells % 0.1 /100 WBC (0.0-0.4); Platelet Count 327 10^3/uL (150-450); Red Blood Count 3.08 10^6/uL (4.06-5.63); Red Cell Distribution Width 17.5 % (12-17); White Blood Count 6.5 10^3/uL (3.6-10.2)
[2022-12-26 04:55] LABS: Calcium 8.2 mg/dL (8.6-10.3); Creatinine, Serum 1.05 mg/dL (0.67-1.17); Magnesium 1.9 mg/dL (1.9-2.7); Potassium 3.5 mmol/L (3.5-5.0); eGFR CKD-EPI 79.3 (>60)
[2022-12-26] MEDS: Propofol 10 mg/ml 100 ML BTL 1,000 MG/100 ML BTL IV SCH ×5 (05:13→23:08)
[2022-12-26] MEDS: Dextrose 50% Syringe 50 ml 25 GM/50 ML SYRINGE IV PUSH PRN ×2 (05:17→22:15)
[2022-12-26] MEDS ORDERED: Potassium Chloride LIQUID 20 MEQ/15 ML LIQUID PO ONE (05:59)
[2022-12-26] MEDS ORDERED: Vancomycin 750 MG in NS 0.9% 250 ML IVPB SCH (06:00)
[2022-12-26] MEDS: fentaNYL INFUSION 50 mcg/mL VL 2,500 MCG/50 ML VIAL IV SCH ×2 (06:18→13:00)
[2022-12-26] MEDS: DULoxetine DR 60 mg CAP PO SCH (08:26)
[2022-12-26] MEDS: Chlorhexidine MOUTHWASH 0.12% 15 ML UDC SWISH SPIT SCH ×3 (09:27→21:03)
[2022-12-26] MEDS ORDERED: Dexmedetomidine 1,000 MCG in NS 0.9% 250 ml 240 ML IV SCH (10:00)
[2022-12-26] MEDS ORDERED: Valproic Acid IV 1,500 MG in NS 0.9% 100 ml BAG 100 ML IVPB ONE (14:17)
[2022-12-26] MEDS ORDERED: Lorazepam PYXIS KEY PRN (14:18)
[2022-12-26] MEDS ORDERED: LORazepam 2 mg VIAL 1 ml IV PUSH ONE (14:18)
[2022-12-26] MEDS: cefTRIAXone 2 gm/50 mL D5W 2 GM/50 ML BAG IV SCH (15:01)
[2022-12-26] MEDS: Pantoprazole VIAL 40 MG VIAL IV SCH (17:03)
[2022-12-26 18:14] LABS: Body Fluid Appearance Clear; Body Fluid Color Colorless; Body Fluid Source Cerebral Spinal; CSF Tube # 4
[2022-12-26 18:25] LABS: CSF Glucose 69 mg/dL (40-70)
[2022-12-26 18:52] LABS: Body Fluid Mono 1 %; Body Fluid Total Cells Counted 2; Body Fluid WBC 0 /mcL
[2022-12-26 19:19] LABS: Urine Appearance Cloudy; Urine Bacteria Absent (Absent); Urine Bilirubin Negative (Negative); Urine Blood 2+ (Negative); Urine Glucose 3+(>=500 mg/dL) (Negative); Urine Ketones 1+ (Negative); Urine Nitrite Negative (Negative); Urine Protein 2+(100 mg/dL) (Negative); Urine Red Blood Cell 3+(>10/hpf) (Absent); Urine Specific Gravity 1.025 (1.002-1.030); Urine Urobilinogen Negative (Negative); Urine White Blood Cell 3+(>20/hpf) (Absent)
[2022-12-26 19:20] LABS: Urine Color Red
[2022-12-26] MEDS ORDERED: Valproic Acid IV 100 MG/ML 5 ML VIAL (500 MG) IVPB SCH (21:00)
[2022-12-26] MEDS: Valproic Acid IV 1,000 MG in NS 0.9% 100 ml BAG 100 ML IVPB SCH (21:02)
[2022-12-26] MEDS: Enoxaparin 40 MG/0.4 ML SYR SUBCUT SCH (21:03)
[2022-12-27] MEDS: cefTRIAXone 2 gm/50 mL D5W 2 GM/50 ML BAG IV SCH ×2 (01:26→15:44)
[2022-12-27 04:52] LABS: ABS Basophils 0.1 10^3/uL (0.0-0.1); ABS Eosinophils 0.3 10^3/uL (0.0-0.5); ABS Lymphocytes 2.1 10^3/uL (1.0-4.8); ABS Monocytes 0.6 10^3/uL (0.0-1.1); ABS Neutrophils 4.5 10^3/uL (1.5-7.6); ABS Nucleated RBC 0.01 10^3/ul; Eosinophil % 4.2 %; Hemoglobin 9.4 g/dL (13.2-16.3); Lymphocyte % 27.6 %; Mean Corpuscular Hemoglobin 26.6 pg (27-33); Mean Corpuscular Hgb Conc 32.5 g/dL (31-36); Mean Corpuscular Volume 81.9 fL (80-97); Mean Platelet Volume 6.9 fL (7.5-11.2); Nucleated Red Blood Cells % 0.1 /100 WBC (0.0-0.4); Platelet Count 376 10^3/uL (150-450); Red Blood Count 3.54 10^6/uL (4.06-5.63); Red Cell Distribution Width 17.6 % (12-17); White Blood Count 7.7 10^3/uL (3.6-10.2)
[2022-12-27] MEDS: Propofol 10 mg/ml 100 ML BTL 1,000 MG/100 ML BTL IV SCH (05:22)
[2022-12-27 05:58] LABS: Calcium 8.5 mg/dL (8.6-10.3); Creatinine, Serum 1.04 mg/dL (0.67-1.17); Phosphorus 2.8 mg/dL (2.5-5.0); Potassium 4.2 mmol/L (3.5-5.0); eGFR CKD-EPI 80.2 (>60)
[2022-12-27] MEDS: Chlorhexidine MOUTHWASH 0.12% 15 ML UDC SWISH SPIT SCH ×3 (07:34→21:24)
[2022-12-27] MEDS: Valproic Acid IV 1,000 MG in NS 0.9% 100 ml BAG 100 ML IVPB SCH ×2 (07:34→21:34)
[2022-12-27] MEDS: DULoxetine DR 60 mg CAP PO SCH (07:34)
[2022-12-27] MEDS: Pantoprazole VIAL 40 MG VIAL IV SCH (15:45)
[2022-12-27] MEDS: Enoxaparin 40 MG/0.4 ML SYR SUBCUT SCH (21:24)
[2022-12-28] MEDS: cefTRIAXone 2 gm/50 mL D5W 2 GM/50 ML BAG IV SCH ×2 (02:38→14:52)
[2022-12-28 04:50] LABS: Hematocrit 31.2 % (38-53); Hemoglobin 10.2 g/dL (13.2-16.3); Mean Corpuscular Hemoglobin 26.4 pg (27-33); Mean Corpuscular Hgb Conc 32.8 g/dL (31-36); Mean Corpuscular Volume 80.4 fL (80-97); Mean Platelet Volume 7.3 fL (7.5-11.2); Platelet Count 368 10^3/uL (150-450); Red Blood Count 3.88 10^6/uL (4.06-5.63); Red Cell Distribution Width 17.3 % (12-17); White Blood Count 8.8 10^3/uL (3.6-10.2)
[2022-12-28 05:07] LABS: Magnesium 2.2 mg/dL (1.9-2.7); Potassium 4.2 mmol/L (3.5-5.0)
[2022-12-28 05:13] LABS: Creatinine, Serum 1.02 mg/dL (0.67-1.17); eGFR CKD-EPI 82.1 (>60)
[2022-12-28] MEDS ORDERED: Vancomycin Trough Check NOTE FOLLOW UP ONE (05:30)
[2022-12-28 05:38] LABS: ABS Basophils 0.1 10^3/uL (0.0-0.1); ABS Eosinophils 0.2 10^3/uL (0.0-0.5); ABS Lymphocytes 1.2 10^3/uL (1.0-4.8); ABS Monocytes 0.7 10^3/uL (0.0-1.1); ABS Neutrophils 6.6 10^3/uL (1.5-7.6); ABS Nucleated RBC 0.01 10^3/ul; Lymphocyte % 13.9 %; Nucleated Red Blood Cells % 0.1 /100 WBC (0.0-0.4)
[2022-12-28] MEDS: Valproic Acid IV 1,000 MG in NS 0.9% 100 ml BAG 100 ML IVPB SCH (08:22)
[2022-12-28] MEDS: Chlorhexidine MOUTHWASH 0.12% 15 ML UDC SWISH SPIT SCH ×3 (08:24→22:13)
[2022-12-28] MEDS: DULoxetine DR 60 mg CAP PO SCH (08:24)
[2022-12-28 09:15] LABS: PCO2 Arterial 38 mmHg (35-45); PO2 Arterial 141 mmHg (80-100)
[2022-12-28] MEDS: Pantoprazole VIAL 40 MG VIAL IV SCH (17:03)
[2022-12-28] MEDS: Valproic Acid IV 500 MG in NS 0.9% 100 ml BAG 100 ML IVPB SCH (21:49)
[2022-12-28] MEDS: Enoxaparin 40 MG/0.4 ML SYR SUBCUT SCH (22:13)
[2022-12-28 22:26] LABS: Anaplasma phagocytophilum Negative (Negative); B. miyamotoi PCR, B Negative (Negative); Babesia divergens/MO-1 Negative (Negative); Babesia ducani Negative (Negative); Ehrlichia chaffeensis Negative (Negative); Ehrlichia ewingii/canis Negative (Negative); Ehrlichia muris eauclairensis Negative (Negative)
[2022-12-29] MEDS: cefTRIAXone 2 gm/50 mL D5W 2 GM/50 ML BAG IV SCH ×2 (01:15→16:05)
[2022-12-29 05:27] LABS: ABS Basophils 0.1 10^3/uL (0.0-0.1); ABS Lymphocytes 1.1 10^3/uL (1.0-4.8); ABS Neutrophils 10.7 10^3/uL (1.5-7.6); Eosinophil % 0.1 %; Hematocrit 32.8 % (38-53); Hemoglobin 10.6 g/dL (13.2-16.3); Lymphocyte % 8.7 %; Mean Corpuscular Hemoglobin 26.4 pg (27-33); Mean Corpuscular Hgb Conc 32.3 g/dL (31-36); Mean Corpuscular Volume 81.9 fL (80-97); Mean Platelet Volume 7.2 fL (7.5-11.2); Platelet Count 366 10^3/uL (150-450); Red Cell Distribution Width 17.7 % (12-17); White Blood Count 12.9 10^3/uL (3.6-10.2)
[2022-12-29 06:13] LABS: Calcium 9.5 mg/dL (8.6-10.3); Creatinine, Serum 0.89 mg/dL (0.67-1.17); Magnesium 2.3 mg/dL (1.9-2.7); Potassium 3.9 mmol/L (3.5-5.0); eGFR CKD-EPI 95.7 (>60)
[2022-12-29] MEDS ORDERED: Potassium Chloride LIQUID 20 MEQ/15 ML LIQUID PO ONE (10:18)
[2022-12-29] MEDS: DULoxetine DR 60 mg CAP PO SCH (10:25)
[2022-12-29] MEDS: Chlorhexidine MOUTHWASH 0.12% 15 ML UDC SWISH SPIT SCH ×2 (10:55→15:47)
[2022-12-29] MEDS: Valproic Acid IV 500 MG in NS 0.9% 100 ml BAG 100 ML IVPB SCH (11:13)
[2022-12-29] MEDS ORDERED: Ibuprofen ADULT LIQ 600 MG/30 ML UDC PO ONE (15:27)
[2022-12-29] MEDS: Pantoprazole VIAL 40 MG VIAL IV SCH (16:03)
[2022-12-29 17:22] LABS: Urine Appearance Cloudy; Urine Bilirubin Negative (Negative); Urine Blood 3+ (Negative); Urine Color Yellow; Urine Glucose 3+(>=500 mg/dL) (Negative); Urine Ketones 1+ (Negative); Urine Nitrite Negative (Negative); Urine Protein 2+(100 mg/dL) (Negative); Urine Specific Gravity 1.025 (1.002-1.030); Urine Urobilinogen Negative (Negative)
[2022-12-29 17:41] LABS: Urine Bacteria Absent (Absent); Urine Red Blood Cell 3+(>10/hpf) (Absent); Urine Squamous Epithelial Cell Present (Absent); Urine Uric Acid Crystals Present (Absent); Urine White Blood Cell Trace(0-5/hpf) (Absent)
[2022-12-29] MEDS ORDERED: Piperacillin/Tazobac ADVAN 3.375 GM in NS 0.9% 100 ml BAG 100 ML IV ONE (17:53)
[2022-12-29] MEDS ORDERED: Zosyn per Pharmacy NOTE FOLLOW UP SCH (18:00)
[2022-12-29] MEDS: Enoxaparin 40 MG/0.4 ML SYR SUBCUT SCH (20:24)
[2022-12-29] MEDS: Valproic Acid IV 250 MG in NS 0.9% 100 ml BAG 100 ML IVPB SCH (20:25)
[2022-12-29] MEDS: ZOSYN 3.375 GM Q8H per EXTENDED INFUSION IV SCH (23:27)
[2022-12-30 05:37] LABS: ABS Eosinophils 0.1 10^3/uL (0.0-0.5); ABS Monocytes 0.8 10^3/uL (0.0-1.1); ABS Neutrophils 8.7 10^3/uL (1.5-7.6); ABS Nucleated RBC 0.01 10^3/ul; Eosinophil % 0.9 %; Hemoglobin 11.3 g/dL (13.2-16.3); Lymphocyte % 9.7 %; Mean Corpuscular Hemoglobin 26.7 pg (27-33); Mean Corpuscular Hgb Conc 32.4 g/dL (31-36); Mean Corpuscular Volume 82.4 fL (80-97); Mean Platelet Volume 7.6 fL (7.5-11.2); Nucleated Red Blood Cells % 0.1 /100 WBC (0.0-0.4); Platelet Count 344 10^3/uL (150-450); Red Blood Count 4.25 10^6/uL (4.06-5.63); Red Cell Distribution Width 17.9 % (12-17); White Blood Count 10.7 10^3/uL (3.6-10.2)
[2022-12-30 06:05] LABS: Anion Gap 12 mmol/L (2-16); Blood Urea Nitrogen 27 mg/dL (6-24); CO2 Carbon Dioxide 27 mmol/L (22-32); Calcium 9.8 mg/dL (8.6-10.3); Chloride 109 mmol/L (101-111); Creatinine, Serum 0.94 mg/dL (0.67-1.17); Glucose 263 mg/dL (70-100); Magnesium 2.3 mg/dL (1.9-2.7); Potassium 3.9 mmol/L (3.5-5.0); Sodium 148 mmol/L (135-145); eGFR CKD-EPI 90.5 (>60)
[2022-12-30] MEDS ORDERED: Potassium Chloride LIQUID 20 MEQ/15 ML LIQUID PO ONE (07:31)
[2022-12-30] MEDS: ZOSYN 3.375 GM Q8H per EXTENDED INFUSION IV SCH ×3 (08:33→23:16)
[2022-12-30] MEDS: DULoxetine DR 60 mg CAP PO SCH (08:40)
[2022-12-30] MEDS: Valproic Acid IV 250 MG in NS 0.9% 100 ml BAG 100 ML IVPB SCH (11:36)
[2022-12-30] MEDS ORDERED: methylPREDNISolone SOD SUCC 1000 MG ML VIAL IVPB SCH (12:00)
[2022-12-30 12:35] LABS: Rheumatoid Factor < 10 IU/mL (<15)
[2022-12-30] MEDS: methylPREDNISolone SOD SUCC 1,000 MG in NS 0.9% 250 ml 250 ML IVPB SCH (12:53)
[2022-12-30] MEDS: Pantoprazole VIAL 40 MG VIAL IV SCH (16:22)
[2022-12-30 17:00] LABS: Copper, S 197 mcg/dL (73-129)
[2022-12-30] MEDS: Valproic Acid LIQ 250 MG/5 ML UDC PO SCH (20:33)
[2022-12-30] MEDS: Enoxaparin 40 MG/0.4 ML SYR SUBCUT SCH (20:34)
[2022-12-30] MEDS ORDERED: Insulin GLARGINE 100 un/ml 10 ml VIAL SUBCUT SCH (21:00)
[2022-12-30] MEDS: Insulin GLARGINE 100 un/ml 10 ml VIAL SUBCUT SCH (21:23)
[2022-12-31 05:56] LABS: Albumin 3.6 g/dL (3.2-5.2); Albumin/Globulin Ratio 1.2 (1-3); Calcium 9.3 mg/dL (8.6-10.3); Creatinine, Serum 1.07 mg/dL (0.67-1.17); Direct Bilirubin 0.1 mg/dL (0.03-0.18); Indirect Bilirubin 0.3 mg/dL (0.3-1.0); Magnesium 2.2 mg/dL (1.9-2.7); Potassium 3.9 mmol/L (3.5-5.0); Total Bilirubin 0.4 mg/dL (0.2-1.0); Total Protein 6.6 g/dL (6.4-8.9); eGFR CKD-EPI 77.5 (>60)
[2022-12-31 05:58] LABS: ABS Lymphocytes 0.7 10^3/uL (1.0-4.8); ABS Monocytes 0.3 10^3/uL (0.0-1.1); ABS Neutrophils 8.8 10^3/uL (1.5-7.6); ABS Nucleated RBC 0.01 10^3/ul; Hematocrit 32.8 % (38-53); Hemoglobin 10.5 g/dL (13.2-16.3); Lymphocyte % 7.1 %; Mean Corpuscular Hemoglobin 26.2 pg (27-33); Mean Corpuscular Volume 81.9 fL (80-97); Mean Platelet Volume 8.1 fL (7.5-11.2); Nucleated Red Blood Cells % 0.1 /100 WBC (0.0-0.4); Platelet Count 347 10^3/uL (150-450); Red Blood Count 4.01 10^6/uL (4.06-5.63); Red Cell Distribution Width 18.6 % (12-17); White Blood Count 9.8 10^3/uL (3.6-10.2)
[2022-12-31] MEDS ORDERED: Potassium Chloride LIQUID 20 MEQ/15 ML LIQUID PO ONE (06:32)
[2022-12-31] MEDS: ZOSYN 3.375 GM Q8H per EXTENDED INFUSION IV SCH (07:20)
[2022-12-31] MEDS: DULoxetine DR 60 mg CAP PO SCH (07:46)
[2022-12-31] MEDS: Valproic Acid LIQ 250 MG/5 ML UDC PO SCH ×2 (07:47→21:51)
[2022-12-31] MEDS: methylPREDNISolone SOD SUCC 1,000 MG in NS 0.9% 250 ml 250 ML IVPB SCH (08:52)
[2022-12-31] MEDS: Pantoprazole VIAL 40 MG VIAL IV SCH (17:02)
[2022-12-31] MEDS: Insulin GLARGINE 100 un/ml 10 ml VIAL SUBCUT SCH (21:22)
[2022-12-31] MEDS: Enoxaparin 40 MG/0.4 ML SYR SUBCUT SCH (21:22)
[2023-01-01] MEDS: DULoxetine DR 60 mg CAP PO SCH (10:06)
[2023-01-01] MEDS: Valproic Acid LIQ 250 MG/5 ML UDC PO SCH ×2 (10:06→20:51)
[2023-01-01] MEDS: methylPREDNISolone SOD SUCC 1,000 MG in NS 0.9% 250 ml 250 ML IVPB SCH (10:32)
[2023-01-01] MEDS: Pantoprazole VIAL 40 MG VIAL IV SCH (17:13)
[2023-01-01] MEDS: Enoxaparin 40 MG/0.4 ML SYR SUBCUT SCH (20:52)
[2023-01-01] MEDS ORDERED: Insulin GLARGINE 100 un/ml 10 ml VIAL SUBCUT SCH (21:00)
[2023-01-02 05:48] LABS: ABS Lymphocytes 0.8 10^3/uL (1.0-4.8); ABS Monocytes 0.6 10^3/uL (0.0-1.1); ABS Neutrophils 8.7 10^3/uL (1.5-7.6); ABS Nucleated RBC 0.01 10^3/ul; Hematocrit 30.8 % (38-53); Hemoglobin 10.2 g/dL (13.2-16.3); Lymphocyte % 8.3 %; Mean Corpuscular Hemoglobin 26.7 pg (27-33); Mean Corpuscular Volume 80.9 fL (80-97); Mean Platelet Volume 8.2 fL (7.5-11.2); Nucleated Red Blood Cells % 0.1 /100 WBC (0.0-0.4); Platelet Count 291 10^3/uL (150-450); Red Cell Distribution Width 18.6 % (12-17); White Blood Count 10.2 10^3/uL (3.6-10.2)
[2023-01-02 06:05] LABS: Albumin 3.4 g/dL (3.2-5.2); Albumin/Globulin Ratio 1.2 (1-3); Calcium 9.2 mg/dL (8.6-10.3); Creatinine, Serum 0.89 mg/dL (0.67-1.17); Globulin 2.8 g/dL (2-4); Magnesium 2.2 mg/dL (1.9-2.7); Potassium 3.6 mmol/L (3.5-5.0); Total Bilirubin 0.3 mg/dL (0.2-1.0); Total Protein 6.2 g/dL (6.4-8.9); eGFR CKD-EPI 95.7 (>60)
[2023-01-02] MEDS: DULoxetine DR 60 mg CAP PO SCH (09:42)
[2023-01-02] MEDS: Valproic Acid LIQ 250 MG/5 ML UDC PO SCH ×2 (09:45→20:20)
[2023-01-02 12:32] LABS: SS-A/Ro Antibody 0.2 U; SS-B/La Antibody <0.2 U
[2023-01-02] MEDS: Pantoprazole VIAL 40 MG VIAL IV SCH (17:25)
[2023-01-02] MEDS: Enoxaparin 40 MG/0.4 ML SYR SUBCUT SCH (20:19)
[2023-01-02] MEDS: Insulin GLARGINE 100 un/ml 10 ml VIAL SUBCUT SCH (20:20)
[2023-01-03 05:26] LABS: ABS Eosinophils 0.1 10^3/uL (0.0-0.5); ABS Monocytes 0.7 10^3/uL (0.0-1.1); ABS Neutrophils 7.8 10^3/uL (1.5-7.6); ABS Nucleated RBC 0.02 10^3/ul; Eosinophil % 0.6 %; Hematocrit 32.9 % (38-53); Lymphocyte % 19.4 %; Mean Corpuscular Hemoglobin 27.2 pg (27-33); Mean Corpuscular Hgb Conc 33.4 g/dL (31-36); Mean Corpuscular Volume 81.4 fL (80-97); Mean Platelet Volume 8.3 fL (7.5-11.2); Nucleated Red Blood Cells % 0.2 /100 WBC (0.0-0.4); Platelet Count 277 10^3/uL (150-450); Red Blood Count 4.05 10^6/uL (4.06-5.63); Red Cell Distribution Width 18.1 % (12-17); White Blood Count 10.6 10^3/uL (3.6-10.2)
[2023-01-03 06:04] LABS: Calcium 8.9 mg/dL (8.6-10.3); Creatinine, Serum 0.79 mg/dL (0.67-1.17); Potassium 3.2 mmol/L (3.5-5.0); eGFR CKD-EPI 99.2 (>60)
[2023-01-03] MEDS: DULoxetine DR 60 mg CAP PO SCH (10:45)
[2023-01-03] MEDS: Pantoprazole VIAL 40 MG VIAL IV SCH (18:20)
[2023-01-03] MEDS ORDERED: Potassium Chloride LIQUID 20 MEQ/15 ML LIQUID PO ONE (20:09)
[2023-01-03] MEDS: Insulin GLARGINE 100 un/ml 10 ml VIAL SUBCUT SCH (21:44)
[2023-01-03] MEDS: Enoxaparin 40 MG/0.4 ML SYR SUBCUT SCH (21:44)
[2023-01-03] MEDS: Valproic Acid LIQ 250 MG/5 ML UDC PO SCH (22:50)
[2023-01-04 06:48] LABS: Calcium 8.7 mg/dL (8.6-10.3); Creatinine, Serum 0.82 mg/dL (0.67-1.17); Magnesium 1.9 mg/dL (1.9-2.7); eGFR CKD-EPI 98.1 (>60)
[2023-01-04] MEDS: DULoxetine DR 60 mg CAP PO SCH (08:37)
[2023-01-04] MEDS: Potassium Citrate 10 meq TAB (NF) PO SCH ×2 (12:10→20:10)
[2023-01-04 13:04] LABS: Urine Collection Duration 24 h; Urine Volume 2300 mL
[2023-01-04 18:17] LABS: AGNA-1, CSF Negative (Negative); ANNA-1, CSF Negative (Negative); ANNA-2, CSF Negative (Negative); ANNA-3, CSF Negative (Negative); Amphiphysin Ab, CSF Negative (Negative); CRMP-5-IgG, CSF Negative (Negative); IFA Notes None.; PCA-1, CSF Negative (Negative); PCA-2, CSF Negative (Negative); PCA-Tr, CSF Negative (Negative)
[2023-01-04] MEDS: Enoxaparin 40 MG/0.4 ML SYR SUBCUT SCH (20:08)
[2023-01-04] MEDS: Insulin GLARGINE 100 un/ml 10 ml VIAL SUBCUT SCH (21:20)
[2023-01-05 06:52] LABS: Calcium 8.9 mg/dL (8.6-10.3); Creatinine, Serum 0.77 mg/dL (0.67-1.17); Magnesium 1.9 mg/dL (1.9-2.7); Potassium 3.7 mmol/L (3.5-5.0)
[2023-01-05] MEDS: DULoxetine DR 60 mg CAP PO SCH (07:55)
[2023-01-05] MEDS: Potassium Citrate 10 meq TAB (NF) PO SCH (07:56)
[2023-01-05] MEDS: Enoxaparin 40 MG/0.4 ML SYR SUBCUT SCH (20:34)
[2023-01-05] MEDS: Insulin GLARGINE 100 un/ml 10 ml VIAL SUBCUT SCH (20:34)
[2023-01-05] MEDS: Potassium Chlor 10 meq TAB PO SCH (20:34)
[2023-01-06 06:10] LABS: Calcium 8.9 mg/dL (8.6-10.3); Creatinine, Serum 0.75 mg/dL (0.67-1.17); Magnesium 1.7 mg/dL (1.9-2.7); Potassium 3.9 mmol/L (3.5-5.0); eGFR CKD-EPI 100.8 (>60)
[2023-01-06] MEDS ORDERED: Magnesium Sulfate IV 3 GM in NS 0.9% 100 ml BAG 100 ML IVPB ONE (08:01)
[2023-01-06] MEDS: Potassium Chlor 10 meq TAB PO SCH ×2 (08:57→20:40)
[2023-01-06] MEDS: DULoxetine DR 60 mg CAP PO SCH (08:58)
[2023-01-06] MEDS: Insulin GLARGINE 100 un/ml 10 ml VIAL SUBCUT SCH (20:39)
[2023-01-06] MEDS: Enoxaparin 40 MG/0.4 ML SYR SUBCUT SCH (20:40)
[2023-01-07] MEDS: Potassium Chlor 10 meq TAB PO SCH ×2 (09:30→20:41)
[2023-01-07] MEDS: DULoxetine DR 60 mg CAP PO SCH (09:30)
[2023-01-07] MEDS: Tapentadol 50 mg TAB (NF) PO SCH ×2 (20:40→23:57)
[2023-01-07] MEDS: Enoxaparin 40 MG/0.4 ML SYR SUBCUT SCH (20:40)
[2023-01-07] MEDS: Insulin GLARGINE 100 un/ml 10 ml VIAL SUBCUT SCH (20:41)
[2023-01-08] MEDS: Tapentadol 50 mg TAB (NF) PO SCH ×2 (05:43→13:06)
[2023-01-08] MEDS: Potassium Chlor 10 meq TAB PO SCH (08:12)
[2023-01-08] MEDS: DULoxetine DR 60 mg CAP PO SCH (08:13)
[2023-01-08 11:04] VITALS: BP 124/82
[2023-01-08 15:42] LABS: Anti-Glial/Neuronal Nuc Ab-1 A Negative (Negative); Anti-Neuronal Nuclear Ab Type1 Negative (Negative); Anti-Neuronal Nuclear Ab Type2 Negative (Negative); Anti-Neuronal Nuclear Ab Type3 Negative (Negative); CRMP-5 IgG Antibody Negative (Negative); IFA Notes None.; Purkinje Cell Cytoplasm Type 1 Negative (Negative); Purkinje Cell Cytoplasm Type 2 Negative (Negative)
== END 2023-01-08 16:00 | DRG 816 ==
LOC: ED 15:01 → SUATTDRO 23:06 → EDHOLD 23:06 → ICU 12-24 12:31 → MEDTELE 12-31 18:52 → PMRU 01-08 16:09
PROVIDERS: ADMIT Internal Medicine; ATTEND Internal Medicine

== ENCOUNTER 2023-01-08 07:17 | Inpatient (IN) ==
[2023-01-08] MEDS ORDERED: Senna TAB 8.6 mg TAB PO PRN (16:28)
[2023-01-08] MEDS ORDERED: Magnesium Hydroxide LIQ 30 ML UDC PO PRN (16:28)
[2023-01-08] MEDS ORDERED: Dextrose 50% Syringe 50 ml 25 GM/50 ML SYRINGE IV PUSH PRN (16:36)
[2023-01-08] MEDS: Tapentadol 50 mg TAB (NF) PO SCH ×2 (18:54→23:57)
[2023-01-08] MEDS: Enoxaparin 40 MG/0.4 ML SYR SUBCUT SCH (20:43)
[2023-01-08] MEDS: Potassium Chlor 10 meq TAB PO SCH (20:43)
[2023-01-08] MEDS ORDERED: Insulin GLARGINE 100 un/ml 10 ml VIAL SUBCUT SCH (21:00)
[2023-01-09] MEDS: Tapentadol 50 mg TAB (NF) PO SCH ×4 (05:47→23:54)
[2023-01-09] MEDS: Potassium Chlor 10 meq TAB PO SCH ×2 (09:18→20:18)
[2023-01-09] MEDS: DULoxetine DR 30 mg CAP PO SCH (09:19)
[2023-01-09] MEDS ORDERED: Calcium Carb (TUMS) 500 mg CHEW TAB PO PRN (10:02)
[2023-01-09] MEDS ORDERED: Lorazepam PYXIS KEY PRN (12:00)
[2023-01-09] MEDS ORDERED: LORazepam 2 mg VIAL 1 ml IM PRN (12:00)
[2023-01-09] MEDS: Enoxaparin 40 MG/0.4 ML SYR SUBCUT SCH (20:30)
[2023-01-09] MEDS ORDERED: Insulin GLARGINE 100 un/ml 10 ml VIAL SUBCUT SCH (21:00)
[2023-01-10] MEDS: Tapentadol 50 mg TAB (NF) PO SCH ×4 (00:11→18:11)
[2023-01-10 06:22] LABS: ABS Eosinophils 0.1 10^3/uL (0.0-0.5); ABS Lymphocytes 1.9 10^3/uL (1.0-4.8); ABS Monocytes 1.4 10^3/uL (0.0-1.1); ABS Neutrophils 11.9 10^3/uL (1.5-7.6); Eosinophil % 0.9 %; Hematocrit 34.2 % (38-53); Hemoglobin 11.1 g/dL (13.2-16.3); Lymphocyte % 12.4 %; Mean Corpuscular Hemoglobin 26.4 pg (27-33); Mean Corpuscular Hgb Conc 32.5 g/dL (31-36); Mean Corpuscular Volume 81.2 fL (80-97); Mean Platelet Volume 8.3 fL (7.5-11.2); Platelet Count 335 10^3/uL (150-450); Red Blood Count 4.21 10^6/uL (4.06-5.63); Red Cell Distribution Width 19.4 % (12-17); White Blood Count 15.4 10^3/uL (3.6-10.2)
[2023-01-10] MEDS: Potassium Chlor 10 meq TAB PO SCH ×2 (10:27→21:24)
[2023-01-10] MEDS: DULoxetine DR 30 mg CAP PO SCH (10:28)
[2023-01-10] MEDS ORDERED: PTO: Dulaglutide (NF) 1.5 MG/0.5 ML SYRINGE SUBCUT SCH (21:00)
[2023-01-10] MEDS: Enoxaparin 40 MG/0.4 ML SYR SUBCUT SCH (21:24)
[2023-01-10] MEDS: Insulin GLARGINE 100 un/ml 10 ml VIAL SUBCUT SCH (21:25)
[2023-01-11] MEDS: Tapentadol 50 mg TAB (NF) PO SCH ×4 (01:43→18:20)
[2023-01-11 06:12] LABS: ABS Eosinophils 0.4 10^3/uL (0.0-0.5); ABS Lymphocytes 2.7 10^3/uL (1.0-4.8); ABS Monocytes 1.3 10^3/uL (0.0-1.1); ABS Neutrophils 8.2 10^3/uL (1.5-7.6); Hematocrit 33.5 % (38-53); Hemoglobin 10.9 g/dL (13.2-16.3); Lymphocyte % 21.6 %; Mean Corpuscular Hemoglobin 26.8 pg (27-33); Mean Corpuscular Hgb Conc 32.6 g/dL (31-36); Mean Corpuscular Volume 82.2 fL (80-97); Mean Platelet Volume 8.4 fL (7.5-11.2); Platelet Count 325 10^3/uL (150-450); Red Blood Count 4.08 10^6/uL (4.06-5.63); Red Cell Distribution Width 19.9 % (12-17); White Blood Count 12.6 10^3/uL (3.6-10.2)
[2023-01-11 06:32] LABS: Albumin 3.3 g/dL (3.2-5.2); Calcium 8.4 mg/dL (8.6-10.3); Potassium 4.1 mmol/L (3.5-5.0); Total Bilirubin 0.2 mg/dL (0.2-1.0)
[2023-01-11 06:38] LABS: Albumin/Globulin Ratio 1.2 (1-3); Creatinine, Serum 1.57 mg/dL (0.67-1.17); Globulin 2.7 g/dL (2-4); eGFR CKD-EPI 48.9 (>60)
[2023-01-11] MEDS: Potassium Chlor 10 meq TAB PO SCH ×2 (09:47→20:13)
[2023-01-11] MEDS: DULoxetine DR 30 mg CAP PO SCH (09:47)
[2023-01-11] MEDS ORDERED: Lorazepam PYXIS KEY PRN (19:27)
[2023-01-11] MEDS ORDERED: LORazepam 2 mg VIAL 1 ml IV PUSH PRN (19:27)
[2023-01-11] MEDS: Enoxaparin 40 MG/0.4 ML SYR SUBCUT SCH (20:13)
[2023-01-11] MEDS: Insulin GLARGINE 100 un/ml 10 ml VIAL SUBCUT SCH (20:56)
[2023-01-12] MEDS: Tapentadol 50 mg TAB (NF) PO SCH ×4 (00:05→17:20)
[2023-01-12 05:47] LABS: Potassium 3.1 mmol/L (3.5-5.0)
[2023-01-12 05:50] LABS: Calcium 6.4 mg/dL (8.6-10.3)
[2023-01-12 05:53] LABS: Creatinine, Serum 0.85 mg/dL (0.67-1.17)
[2023-01-12] MEDS: Potassium Chlor 10 meq TAB PO SCH (09:21)
[2023-01-12] MEDS: DULoxetine DR 30 mg CAP PO SCH (09:21)
[2023-01-12] MEDS ORDERED: Potassium Chlor 20 meq TAB.ER PO ONE (10:44)
[2023-01-12 15:48] LABS: Calcium 8.9 mg/dL (8.6-10.3); Creatinine, Serum 1.06 mg/dL (0.67-1.17); Potassium 4.4 mmol/L (3.5-5.0); eGFR CKD-EPI 78.4 (>60)
[2023-01-12 17:57] VITALS: BP 113/78
[2023-01-12] MEDS ORDERED: TAPENTADOL 200 MG PO SCH (21:00)
== END 2023-01-12 18:40 | disposition left against medical advice (07) | DRG 52 ==
LOC: PMRU 16:33
PROVIDERS: ADMIT Physical Medicine & Rehabilitation; ATTEND Physical Medicine & Rehabilitation

== ENCOUNTER 2024-07-04 23:17 | Inpatient (IN) ==
[2024-07-05 00:30] LABS: ABS Basophils 0.1 10^3/uL (0.0-0.1); ABS Lymphocytes 1.3 10^3/uL (1.0-4.8); ABS Monocytes 1.1 10^3/uL (0.0-1.1); ABS Neutrophils 13.5 10^3/uL (1.5-7.6); Eosinophil % 0.2 %; Hematocrit 38.2 % (38-53); Hemoglobin 12.5 g/dL (13.2-16.3); Lymphocyte % 7.9 %; Mean Corpuscular Hemoglobin 29.5 pg (27-33); Mean Corpuscular Hgb Conc 32.7 g/dL (31-36); Mean Corpuscular Volume 90.3 fL (80-97); Mean Platelet Volume 8.2 fL (7.5-11.2); Platelet Count 192 10^3/uL (150-450); Red Blood Count 4.24 10^6/uL (4.06-5.63); Red Cell Distribution Width 15.3 % (12-17)
[2024-07-05 01:17] LABS: Calcium 7.5 mg/dL (8.6-10.3); Creatinine, Serum 3.66 mg/dL (0.67-1.17); Potassium 6.2 mmol/L (3.5-5.0); eGFR CKD-EPI 17.6 (>60)
[2024-07-05 01:18] LABS: Albumin 3.4 g/dL (3.2-5.2); Albumin/Globulin Ratio 1.8 (1-3); C Reactive Protein 22.44 mg/L (<8.01); Globulin 1.9 g/dL (2-4); Total Bilirubin 0.3 mg/dL (0.2-1.0); Total Protein 5.3 g/dL (6.4-8.9)
[2024-07-05] MEDS: Dextrose 50% Syringe 50 ml 25 GM/50 ML SYRINGE IV PUSH ONE (01:52)
[2024-07-05] MEDS: Furosemide 20 mg/2 ml IV VIAL IV SLOW PU ONE (02:01)
[2024-07-05] MEDS: Lactated Ringers 1000 ml BAG 1,000 ML IV ONE (02:05)
[2024-07-05] MEDS: CALCIUM GLUCONATE 1GM/50ML NS 1 GM/50 ML BAG IV ONE (02:06)
[2024-07-05 02:44] LABS: Urine Appearance Turbid; Urine Bacteria Absent /HPF (Absent); Urine Bilirubin Negative (Negative); Urine Blood 3+ (Negative); Urine Color Light-Yellow; Urine Glucose 4+ (>=1000 mg/dL) (Negative); Urine Ketones Negative (Negative); Urine Nitrite Negative (Negative); Urine Protein 1+ (>=30 mg/dL) (Negative); Urine Red Blood Cell 2+(6-10/hpf) /HPF (0-Trace); Urine Squamous Epithelial Cell Present /HPF (Absent); Urine Urobilinogen Negative (Negative); Urine White Blood Cell Absent /HPF (0-Trace); Urine pH 5.5 (5.0-8.0)
[2024-07-05 03:11] LABS: PCO2 Arterial 43 mmHg (35-45); PO2 Arterial 87 mmHg (80-100)
[2024-07-05] MEDS ORDERED: Vancomycin per Pharmacy 1 EA NOTE FOLLOW UP SCH (04:00)
[2024-07-05] MEDS ORDERED: cefTAZidime (*) 1 GM in NS 0.9% 50 ML 50 ML IVPB SCH (04:00)
[2024-07-05] MEDS ORDERED: Dextrose 50% Syringe 50 ml 25 GM/50 ML SYRINGE IV PUSH PRN ×2 (04:26→22:05)
[2024-07-05 04:32] LABS: TSH Ultra Thyroid Stim Horm 0.6 mcIU/mL (0.34-5.60)
[2024-07-05] MEDS: cefTRIAXone 1 gm/50 mL D5W 1 GM/50 ML BAG IV SCH (04:48)
[2024-07-05] MEDS: Lactated Ringers 1000 ml BAG 1,000 ML IV SCH (04:51)
[2024-07-05 04:54] LABS: Calcium 7.7 mg/dL (8.6-10.3); Creatinine, Serum 3.73 mg/dL (0.67-1.17); Potassium 5.4 mmol/L (3.5-5.0); eGFR CKD-EPI 17.2 (>60)
[2024-07-05 05:13] LABS: Albumin 3.1 g/dL (3.2-5.2); Albumin/Globulin Ratio 1.8 (1-3); Globulin 1.7 g/dL (2-4); Total Bilirubin 0.3 mg/dL (0.2-1.0); Total Protein 4.8 g/dL (6.4-8.9)
[2024-07-05 05:17] LABS: ABS Lymphocytes 1.5 10^3/uL (1.0-4.8); ABS Monocytes 1.1 10^3/uL (0.0-1.1); ABS Neutrophils 11.6 10^3/uL (1.5-7.6); Eosinophil % 0.3 %; Hematocrit 37.8 % (38-53); Hemoglobin 12.3 g/dL (13.2-16.3); Lymphocyte % 10.7 %; Mean Corpuscular Hemoglobin 29.5 pg (27-33); Mean Corpuscular Hgb Conc 32.5 g/dL (31-36); Mean Platelet Volume 8.5 fL (7.5-11.2); Platelet Count 170 10^3/uL (150-450); Red Blood Count 4.16 10^6/uL (4.06-5.63); White Blood Count 14.2 10^3/uL (3.6-10.2)
[2024-07-05 05:43] LABS: Calcium 7.9 mg/dL (8.6-10.3); Creatinine, Serum 3.89 mg/dL (0.67-1.17); Potassium 5.7 mmol/L (3.5-5.0); eGFR CKD-EPI 16.4 (>60)
[2024-07-05 07:11] LABS: C Reactive Protein 30.28 mg/L (<8.01); Phosphorus 6.9 mg/dL (2.5-5.0)
[2024-07-05] MEDS: SODIUM ZIRCONIUM CYCLOSILICATE 10 GM PACKET PO ONE ×3 (07:56→18:35)
[2024-07-05 08:40] LABS: Erythrocyte Sed Rate 10 mm/Hr (0-19)
[2024-07-05] MEDS: NS 0.9% 1000 ml BAG 1,000 ML IV SCH ×2 (11:36→18:18)
[2024-07-05] MEDS: Vancomycin Random Level NOTE FOLLOW UP ONE (11:49)
[2024-07-05] MEDS: Vancomycin 750 MG in NS 0.9% 250 ML IVPB ONE (14:12)
[2024-07-05 16:03] LABS: PSA Screen Ultra Sensitive 1.631 ng/mL (0-4.000)
[2024-07-05 16:46] LABS: Calcium 7.8 mg/dL (8.6-10.3); Creatinine, Serum 3.84 mg/dL (0.67-1.17); Potassium 5.9 mmol/L (3.5-5.0); eGFR CKD-EPI 16.6 (>60)
[2024-07-05] MEDS: NS 0.9% 1000 ml BAG 500 ML IV ONE (17:21)
[2024-07-05] MEDS: Lanthanum 500 mg CHEW TAB PO SCH (20:32)
[2024-07-05] MEDS: Enoxaparin 30 MG/0.3 ML SYR SUBCUT SCH (20:32)
[2024-07-06 02:02] LABS: Calcium 8.2 mg/dL (8.6-10.3); Creatinine, Serum 3.11 mg/dL (0.67-1.17); Potassium 4.8 mmol/L (3.5-5.0); eGFR CKD-EPI 21.4 (>60)
[2024-07-06] MEDS: cefTRIAXone 1 gm/50 mL D5W 1 GM/50 ML BAG IV SCH (03:52)
[2024-07-06 06:37] LABS: ABS Eosinophils 0.2 10^3/uL (0.0-0.5); ABS Lymphocytes 1.3 10^3/uL (1.0-4.8); ABS Monocytes 0.8 10^3/uL (0.0-1.1); ABS Neutrophils 5.3 10^3/uL (1.5-7.6); Eosinophil % 2.9 %; Hematocrit 38.5 % (38-53); Lymphocyte % 16.7 %; Mean Corpuscular Hemoglobin 30.1 pg (27-33); Mean Corpuscular Hgb Conc 33.6 g/dL (31-36); Mean Corpuscular Volume 89.5 fL (80-97); Mean Platelet Volume 8.5 fL (7.5-11.2); Nucleated Red Blood Cells % 0.1 %/100WBC (0.0-0.8); Platelet Count 156 10^3/uL (150-450); Red Blood Count 4.31 10^6/uL (4.06-5.63); Red Cell Distribution Width 14.8 % (12-17); White Blood Count 7.6 10^3/uL (3.6-10.2)
[2024-07-06 06:51] LABS: Creatinine, Serum 2.68 mg/dL (0.67-1.17); Magnesium 1.9 mg/dL (1.9-2.7); Phosphorus 3.9 mg/dL (2.5-5.0); Potassium 4.7 mmol/L (3.5-5.0); eGFR CKD-EPI 25.6 (>60)
[2024-07-06 07:57] LABS: Albumin 3.4 g/dL (3.2-5.2); Albumin/Globulin Ratio 1.7 (1-3); Direct Bilirubin 0.1 mg/dL (0.03-0.18); Indirect Bilirubin 0.3 mg/dL (0.3-1.0); Total Bilirubin 0.4 mg/dL (0.2-1.0); Total Protein 5.4 g/dL (6.4-8.9)
[2024-07-06] MEDS: Magnesium Sulfate IV 1GM/100ML 1 GM/100 ML BAG IV ONE (10:33)
[2024-07-06] MEDS: NS 0.9% 1000 ml BAG 1,000 ML IV SCH (12:51)
[2024-07-06] MEDS: DULoxetine DR 60 mg CAP PO SCH (13:50)
[2024-07-06] MEDS: Vancomycin Random Level NOTE FOLLOW UP ONE (14:09)
[2024-07-06] MEDS: Vancomycin 1000 MG in NS 0.9% 250 ML IVPB ONE (16:52)
[2024-07-06] MEDS: Insulin GLARGINE 100 un/ml 10 ml VIAL SUBCUT SCH (20:42)
[2024-07-06] MEDS: Tapentadol 50 mg TAB (NF) PO SCH (20:42)
[2024-07-07 09:09] LABS: ABS Eosinophils 0.3 10^3/uL (0.0-0.5); ABS Lymphocytes 1.5 10^3/uL (1.0-4.8); ABS Monocytes 0.8 10^3/uL (0.0-1.1); ABS Neutrophils 6.5 10^3/uL (1.5-7.6); ABS Nucleated RBC 0.01 10^3/ul; Eosinophil % 2.8 %; Hemoglobin 14.3 g/dL (13.2-16.3); Lymphocyte % 16.6 %; Mean Corpuscular Hemoglobin 30.1 pg (27-33); Mean Corpuscular Hgb Conc 33.2 g/dL (31-36); Mean Corpuscular Volume 90.6 fL (80-97); Mean Platelet Volume 8.2 fL (7.5-11.2); Nucleated Red Blood Cells % 0.1 %/100WBC (0.0-0.8); Platelet Count 160 10^3/uL (150-450); Red Blood Count 4.75 10^6/uL (4.06-5.63); Red Cell Distribution Width 15.2 % (12-17); White Blood Count 9.1 10^3/uL (3.6-10.2)
[2024-07-07 10:22] LABS: ALT 51 U/L (7-52); Albumin 3.9 g/dL (3.2-5.2); Albumin/Globulin Ratio 1.5 (1-3); Alkaline Phosphatase 76 U/L (35-149); Anion Gap 13 mmol/L (2-16); Blood Urea Nitrogen 33 mg/dL (6-24); CO2 Carbon Dioxide 23 mmol/L (22-32); Calcium 8.8 mg/dL (8.6-10.3); Chloride 103 mmol/L (101-111); Creatine Kinase 3235 U/L (10-223); Creatinine, Serum 1.78 mg/dL (0.67-1.17); Globulin 2.6 g/dL (2-4); Glucose 188 mg/dL (70-100); Magnesium 1.9 mg/dL (1.9-2.7); Sodium 139 mmol/L (135-145); Total Bilirubin 0.5 mg/dL (0.2-1.0); Total Protein 6.5 g/dL (6.4-8.9); Vancomycin Random 12.5 mcg/mL; eGFR CKD-EPI 41.8 (>60)
[2024-07-07] MEDS: Vancomycin Random Level NOTE FOLLOW UP ONE (10:55)
[2024-07-07 12:58] LABS: Phosphorus 2.8 mg/dL (2.5-5.0); Potassium Redraw 4.8 mmol/L (3.5-5.0)
[2024-07-07] MEDS: NS 0.9% 1000 ml BAG 1,000 ML IV SCH (13:18)
[2024-07-07] MEDS ORDERED: Vancomycin 1000 MG in NS 0.9% 250 ML IVPB SCH (14:00)
[2024-07-07 18:26] VITALS: BP 125/71
[2024-07-07] MEDS ORDERED: Dextrose 50% Syringe 50 ml 25 GM/50 ML SYRINGE IV PUSH PRN (20:59)
[2024-07-10] MEDS ORDERED: Vancomycin Trough Check NOTE FOLLOW UP ONE (13:30)
== END 2024-07-07 21:50 | disposition left against medical advice (07) | DRG 720 ==
LOC: ED 23:17 → EDHOLD 23:17 → SUATTDRO 07-05 03:24 → MEDTELE 07-05 08:10
PROVIDERS: ADMIT Internal Medicine; ATTEND Internal Medicine